=== PATIENT | female | born 1985 ===

== ENCOUNTER 2018-04-02 15:21 | Emergency (ER) | payer SELFPAY ==
[2018-04-02 15:21] VITALS: BMI 28.5
--- NOTE | 2018-04-02 15:38 | ED PDOC ---
HPI: General Adult Time Seen by Provider: 04/02/18 15:38 Chief Complaint (Nursing): Abdominal Pain Chief Complaint (Provider): abd pain History Per: Patient Additional Complaint(s): 32-year-old female presents with left lower quadrant pain and left flank pain that started 4 days ago. Patient was seen today at clinic and was referred to our emergency room for further evaluation. Patient denies fever or chills. Ibuprofen has not provided adequate pain relief. Patient does have IUD in place but denies any vaginal bleeding or suprapubic pain. She rates current pain as an 8 out of 10. PMD: [facility] Past Medical History Reviewed: Historical Data, Nursing Documentation, Vital Signs Vital Signs: Last Vital Signs Temp 98.5 F 04/02/18 15:28 Pulse 100 H 04/02/18 15:28 Resp 16 04/02/18 15:28 BP 136/87 04/02/18 15:28 Pulse Ox 100 04/02/18 19:36 - Medical History PMH: No Chronic Diseases - Surgical History Surgical History: (x 1) - Family History Family History: States: No Known Family Hx - Living Arrangements Living Arrangements: With Family - Social History Current smoker - smoking cessation education provided: No Alcohol: None Drugs: Denies - Home Medications Home Medications: Ambulatory Orders Medication Instructions Recorded Docusate [Colace] 100 mg PO BID PRN #60 cap 06/13/17 Ferrous Sulfate [Feosol] 325 mg PO DAILY #30 tab 06/13/17 Ibuprofen [Motrin Tab] 600 mg PO Q6 PRN #30 tab 06/13/17 oxyCODONE/Acetaminophen [Percocet 1 tab PO Q6 PRN #20 tab 06/13/17 5/325 mg Tab] Ibuprofen [Motrin Tab] 800 mg PO Q8 PRN #20 tab 04/02/18 Levofloxacin [Levaquin] 500 mg PO DAILY #7 tablet 04/02/18 - Allergies Allergies/Adverse Reactions: Allergies Allergy/AdvReac Type Severity Reaction Status Date / Time No Known Allergies Allergy Verified 04/02/18 15:28 Review of Systems ROS Statement: Except As Marked, All Systems Reviewed And Found Negative Constitutional: Negative for: Fever Cardiovascular: Negative for: Chest Pain Respiratory: Negative for: Cough Gastrointestinal: Positive for: Nausea, Abdominal Pain (LLQ). Negative for: Vomiting, Diarrhea, Constipation Genitourinary Female: Positive for: Pelvic Pain. Negative for: Dysuria, Vaginal Discharge, Vaginal Bleeding, Rash Musculoskeletal: Positive for: Back Pain (left flank) Physical Exam - Reviewed Nursing Documentation Reviewed: Yes Vital Signs Reviewed: Yes - Physical Exam Appears: Positive for: Well, Non-toxic, No Acute Distress Skin: Negative for: Rash Eye Exam: Positive for: Normal appearance Cardiovascular/Chest: Positive for: Regular Rate, Rhythm Respiratory: Positive for: Normal Breath Sounds. Negative for: Respiratory Distress Gastrointestinal/Abdominal: Positive for: Soft, Tenderness (LLQ). Negative for : Distended, Guarding, Rebound Pelvic Exam: Positive for: Other (Moderate amount of white, non-malodorous discharge noted from closed cervical os, tip of IUD is palpable at external os, no active bleeding, no CMT, no adnexal tenderness bilaterally) Back: Positive for: L CVA Tenderness. Negative for: R CVA Tenderness, Vertebral Tenderness Extremity: Positive for: Normal ROM Neurologic/Psych: Positive for: Alert, Oriented - Laboratory Results Result Diagrams: 04/02/18 16:15 04/02/18 16:15 Urine POC: Negative Urine dip results: Positive for: Leukocyte Esterase (small) - ECG O2 Sat by Pulse Oximetry: 100 Pulse Ox Interpretation: Normal - Other Rad CT abd and pelvis with IV contrast X-Ray: Read By Radiologist X-Ray Interpretation: bladder cystitis, no other acute finding TV US X-Ray: Read By Radiologist X-Ray Interpretation: see below Medical Decision Making Medical Decision Makin32 year old with abd pain and left side low back pain, sent from clinic Plan: Urine dip Urine test UA Urine culture CHL/GC culture CBC CMP TV US CT abd and pelvis with IV contrast IVF - declined by patient IV toradol Patient is aware of diagnostic testing results. She reports mild improvement to pain after Toradol dose was given. Disposition - Clinical Impression Clinical Impression: Pyelocystitis, Pelvic pain - Patient ED Disposition Is Patient to be Admitted: Transfer of Care Counseled Patient/Family Regarding: Studies Performed, Diagnosis, Need For Followup, Rx Given - Disposition [facility]] Disposition: Transfer of Care Disposition Time: 20:00 Condition: STABLE Additional Instructions: Take prescription meds as directed. Drink plenty of fluids. Follow-up with clinic in 2-3 days or return to ED any time if acutely worse. Prescriptions: Ibuprofen [Motrin Tab] 800 mg PO Q8 PRN #20 tab PRN Reason: Pain, Moderate (4-7) Levofloxacin [Levaquin] 500 mg PO DAILY #7 tablet Instructions: Urinary Tract Infections in Adults, Kidney Infection, Acute Pelvic Pain Forms: [employer] (Togolese) Print Language: MALAGASY Patient Signed Over To: Jayla Benites Handoff Comments: Pending fur feeder consult and final disposition Results - Lab Results Lab Results: 04/02/18 04/02/18 04/02/18 16:15 16:15 16:05 WBC 6.2 RBC 5.22 H Hgb 14.5 D Hct 43.8 MCV 83.9 D MCH 27.7 MCHC 33.0 RDW 15.5 H Plt Count 162 MPV 11.0 Neut % (Auto) 58.1 Lymph % (Auto) 34.1 [place] % (Auto) 6.2 Eos % (Auto) 1.2 Baso % (Auto) 0.4 Neut # (Auto) 3.6 Lymph # (Auto) 2.1 [place] # (Auto) 0.4 Eos # (Auto) 0.1 Baso # (Auto) 0.0 Sodium 142 Potassium 4.0 Chloride 104 Carbon Dioxide 18 L Anion Gap 24 H BUN 10 Creatinine 0.7 Est GFR ( Amer) > 60 Est GFR (Non-Af Amer) > 60 Random Glucose 87 Calcium 9.2 Total Bilirubin 0.5 AST 26 ALT 34 Alkaline Phosphatase 73 Total Protein 8.4 H Albumin 4.4 Globulin 4.0 H Albumin/Globulin Ratio 1.1 Urine Color Straw Urine Clarity Slighty-cloudy Urine pH 6.0 Ur Specific [place] 1.006 Urine Protein Negative Urine Glucose (UA) Neg Urine Ketones 20 Urine Blood Small Urine Nitrate Negative Urine Bilirubin Negative Urine Urobilinogen 0.2-1.0 Ur Leukocyte Esterase Mod Urine RBC (Auto) 7 H Urine Microscopic WBC 19 H Ur Squamous Epith Cells 1 Urine Bacteria Rare
[2018-04-02] MEDS ORDERED: Sodium Chloride 0.9% 1,000 ML IV STA (16:00)
[2018-04-02 16:29] LABS: SQUAMOUS EPITHIAL 1 /hpf (0-5); URINE BACTERIA RARE (<OCC); URINE BILIRUBIN NEGATIVE (NEGATIVE); URINE BLOOD SMALL (NEGATIVE); URINE CLARITY SLIGHTY-CLOUDY (Clear); URINE COLOR STRAW (YELLOW); URINE GLUCOSE (UA) NEG (Normal); URINE LEUKOCYTE ESTERASE MOD Leu/uL (Negative); URINE PROTEIN NEGATIVE (NEGATIVE); URINE UROBILINOGEN 0.2-1.0 mg/dL (0.2-1.0)
[2018-04-02 16:40] LABS: ALB/GLOB RATIO 1.1 (1.0-2.1); ALBUMIN 4.4 g/dL (3.5-5.0); ALT/SGPT 34 U/L (9-52); AST/SGOT 26 U/L (14-36); BASO % 0.4 % (0.0-2.0); BLOOD UREA NITROGEN 10 mg/dl (7-17); CALCIUM 9.2 mg/dL (8.4-10.2); EOS # 0.1 K/uL (0.0-0.7); EOS % 1.2 % (0.0-4.0); GFR AFRICAN-AMERICAN > 60; GFR NON-AFRICAN AMERICAN > 60; HEMOGLOBIN 14.5 g/dL (12.0-16.0); LYMPH # 2.1 K/uL (1.0-4.3); LYMPH % 34.1 % (20.0-40.0); MEAN CELL VOLUME 83.9 fl (81.0-99.0); MEAN CORPUSCULAR HEMOGLOBIN 27.7 pg (27.0-31.0); MONO # 0.4 K/uL (0.0-0.8); MONO % 6.2 % (0.0-10.0); NEUT # 3.6 K/uL (1.8-7.0); NEUT % 58.1 % (50.0-75.0); NRBC % 0.1 % (0.0-0.0); RBC 5.22 Mil/uL (3.80-5.20); RED CELL DISTRIBUTION WIDTH 15.5 % (11.5-14.5); WHITE BLOOD COUNT 6.2 K/uL (4.8-10.8)
[2018-04-02] MEDS ORDERED: Iohexol 300 100 ML IJ ONE (16:46)
[2018-04-02] MEDS ORDERED: Sodium Chloride 0.9% 50 ML IV ONE (16:47)
[2018-04-02] MEDS ORDERED: cefTRIAXone (Rocephin) 1 gm Inj ONE (17:19)
--- NOTE | 2018-04-02 17:27 | CT ---
PROCEDURE: CT Abdomen and Pelvis with contrast HISTORY: Left lower quadrant pain, left flank pain. COMPARISON: None. TECHNIQUE: Contrast dose: 90 cc Omnipaque 300 Radiation dose: Total exam DLP = 486.03 mGy-cm. This CT exam was performed using one or more of the following dose reduction techniques: Automated exposure control, adjustment of the mA and/or kV according to patient size, and/or use of iterative reconstruction technique. FINDINGS: LOWER THORAX: Unremarkable. LIVER: Hepatopedal blood flow. Fatty infiltration manifest ultrasonographically as increased focal fatty sparing falciform ligament region adjacent right hepatic lobe. GALLBLADDER AND BILE DUCTS: Unremarkable. PANCREAS: Mildly enlarged pancreatic head and uncinate process. No focal abnormalities identified nor is there evidence of acute pancreatitis. Portal venous system/splenic vein adjacent to the pancreas are normal SPLEEN: Unremarkable. ADRENALS: Unremarkable. No mass. KIDNEYS AND URETERS: Unremarkable. No hydronephrosis. No solid mass. VASCULATURE: Unremarkable. No aortic aneurysm. BOWEL: Unremarkable. No obstruction. No gross mural thickening. APPENDIX: Normal appendix. PERITONEUM: Unremarkable. No free fluid. No free air. LYMPH NODES: Unremarkable. No enlarged lymph nodes. BLADDER: Bladder wall thickening suggestive of mild cystitis. No focal bladder wall abnormalities or bladder calculi detected. REPRODUCTIVE: Anteverted uterus. Intrauterine contraceptive device (IUD) identified BONES: No acute fracture. OTHER FINDINGS: None. IMPRESSION: Bladder wall thickening suggestive of mild cystitis. Otherwise no acute/ significant findings. Additional benign and/or incidental findings described above.
--- NOTE | 2018-04-02 18:43 | US ---
HISTORY: Pelvic pain. IUD placed August 2017. COMPARISON: None available. TECHNIQUE: Transvaginal only. Real -time technique with 2D, duplex and color Doppler FINDINGS: UTERUS: Measures 3.7 x 4.9 x 6.9 cm. Normal in size and appearance. No fibroid or other mass lesion seen. ENDOMETRIUM: Measures 3.5 mm in diameter. Intrauterine contraceptive device (IUD) identified in may be low lying situated within the lower endometrial canal. The tip may be within upper cervical canal. CERVIX: No cervical abnormality identified. RIGHT OVARY: Measures 2.9 x 1.9 x 3.0 cm. No solid mass. Normal flow. Multiple subcentimeter follicles. LEFT OVARY: Measures 1.8 x 2 x 3.2 cm. No solid mass. Normal flow. Multiple subcentimeter follicles. FREE FLUID: No significant free fluid noted. OTHER FINDINGS: None. IMPRESSION: Low-lying IUD with the tip in the upper cervical canal. Otherwise unremarkable study/benign findings identified.
--- NOTE | 2018-04-02 21:23 | ED PDOC ---
- Laboratory Results Result Diagrams: 04/02/18 16:15 04/02/18 16:15 Urine POC: Negative - ECG O2 Sat by Pulse Oximetry: 100 - Progress ED Course And Treament: Case endorsed to proposal lead writer from Rick DURAN pending re-eval 21:30 Patient does not wish to stay in ED to wait for [employer] to call back regarding IUD. States she will follow up as outpatient. Patient was advised to follow up at clinic for evaluation of IUD. Rx Levaquin, Ibuprofen provided Return precautions given Disposition - Clinical Impression Clinical Impression: Pyelocystitis, Pelvic pain, Malpositioned IUD - POA Present On Arrival: None - Disposition [facility]errals[facility]] [facility] [Outside] Disposition: Routine/Home Disposition Time: 21:44 Condition: STABLE Additional Instructions: Take prescription meds as directed. Drink plenty of fluids. Follow-up with clinic in 2-3 days or return to ED any time if acutely worse. Prescriptions: Ibuprofen [Motrin Tab] 800 mg PO Q8 PRN #20 tab PRN Reason: Pain, Moderate (4-7) Levofloxacin [Levaquin] 500 mg PO DAILY #7 tablet Instructions: Urinary Tract Infections in Adults, Kidney Infection, Acute Pelvic Pain Forms: [employer] (Malay) Print Language: TUVALU[place]
[2018-04-02 21:48] VITALS: BP 128/74; PULSE 72; RESP 15; TEMP 97.8; O2SAT 99
== END 2018-04-02 21:48 | disposition home or self-care (01) ==
LOC: H.ER 15:21
DX: R10.2 Pelvic and perineal pain (principal); N12 Tubulo-interstitial nephritis, not specified as acute or chronic; Y76.2 Prosthetic and other implants, materials and accessory obstetric and gynecological devices associated with adverse incidents
CPT/HCPCS: 74177; 76830; 80053; 81003; 81025; 85025; 87086; 87491; 87591; 96365; 99284; J0696; J1885; J7040; Q9967